=== PATIENT | female | born 1945 | race American Indian/Alaskan Native ===

== ENCOUNTER 2017-06-26 08:49 | Observation (INO) | payer MEDICARE, OTHER ==
[2017-06-26] MEDS ORDERED: BABY ASPIRIN ONE ×2 (09:32→11:26)
[2017-06-26 09:47] LABS: Basophils % (Auto) 0.8 % (0.0-1.8); Eosinophils % (Auto) 1.9 % (0.0-4.3); Hematocrit 39.7 % (30.3-42.9); Mean Corpuscular HGB Conc 33 % (30-34); Mean Corpuscular Hemoglobin 30 pg (28-32); Mean Corpuscular Volume 90 fl (79-97); Red Blood Count 4.41 M/mm3 (3.65-5.03); Red Cell Distribution Width 13.3 % (13.2-15.2); White Blood Count 8.1 K/mm3 (4.5-11.0)
[2017-06-26 09:57] LABS: Anion Gap 18 mmol/L; Blood Urea Nitrogen 17 mg/dL (7-17); Calcium 9.5 mg/dL (8.4-10.2); Carbon Dioxide 26 mmol/L (22-30); Chloride 102.2 mmol/L (98-107); Glucose 111 mg/dL (65-100); Potassium 4.3 mmol/L (3.6-5.0); Sodium 142 mmol/L (137-145)
[2017-06-26] MEDS ORDERED: HEPARIN/NS 5000 UNIT/500ML(CATH LAB) 1,000 ML IR ONE (09:59)
[2017-06-26] MEDS ORDERED: NACL 0.9% 500 ML 500 ML IV SCH (10:00)
[2017-06-26] MEDS: BABY ASPIRIN PO SCH (10:00)
[2017-06-26] MEDS ORDERED: XYLOCAINE 2% INFILTRATI ONE (10:00)
[2017-06-26] MEDS ORDERED: VERSED ONE (10:01)
[2017-06-26] MEDS ORDERED: NITROGLYCERIN SYRINGE 3 ML ONE (10:01)
[2017-06-26] MEDS ORDERED: SUBLIMAZE ONE (10:01)
[2017-06-26 10:04] LABS: Platelet Count 216 K/mm3 (140-440)
[2017-06-26 10:09] LABS: INR 0.88 (0.87-1.13)
[2017-06-26] MEDS: HEPARIN 10,000 UNITS/10 ML ONE ×4 (10:41→11:30)
[2017-06-26] MEDS ORDERED: PLAVIX ONE (11:26)
[2017-06-26] MEDS ORDERED: ALUM-MAG HYDROX-SIMETH 200-200-20MG/5ML ONE (11:37)
[2017-06-26] MEDS ORDERED: NACL 0.9% 1000 ML 1,000 ML IV SCH (12:00)
[2017-06-26] MEDS: COREG PO SCH ×3 (12:00→21:53)
[2017-06-26] MEDS: NORVASC PO SCH ×2 (12:00→12:08)
[2017-06-26] MEDS: IMDUR PO SCH (12:53)
--- NOTE | 2017-06-26 13:41 | Cardiac Catherization Report ---
CARDIAC CATHETERIZATION AND CORONARY ANGIOPLASTY REASON FOR PROCEDURE: The patient is a 71-year-old woman with chest pain and abnormal thallium stress test, referred for cardiac catheterization. PROCEDURE: The patient was prepped and draped in a sterile fashion after informed consent. The right femoral artery was entered using the Seldinger technique followed by placement of a 6-Latvian sheath. Selective left and right coronary angiography was performed using a #4 left J Carlos and a #4 right J Carlos. The right J Carlos catheter was used for left ventricle angiography. FINDINGS: HEMODYNAMICS: Left ventricle end diastolic pressure was 14. Ascending aortic pressure was 170/69. There was no significant pressure gradient on pullback across the aortic valve. CORONARY ANGIOGRAPHY: There was moderate to severe, diffuse coronary calcification involving both left and right coronary arteries. The left main coronary artery contained mild luminal irregularities. The left anterior descending artery contained an 80% to 90% stenosis of its proximal segment, close to its ostium. Following this lesion, there was diffuse moderate atherosclerosis of the rest of the proximal, mid, and distal segments of the LAD and diagonal branches. The circumflex artery also contained an 80% to 90% stenosis of its proximal AV groove segment. Following this, there was diffuse mild atherosclerosis of the circumflex system and its obtuse marginal branches. The right coronary artery was dominant. This vessel contained heavy calcification at its ostium and proximal segment. This was associated with diffuse mild atherosclerosis of the proximal, mid, and distal segments of this vessel. There was well preserved left ventricular systolic function, ejection fraction 55% to 60%. CORONARY ANGIOPLASTY: After review of the angiograms, ad hoc coronary intervention to the proximal LAD and proximal circumflex artery was recommended. We exchanged for an XB 3.5 guiding catheter and advanced to the left coronary ostium. A 0.014 inch Master Control Supervisor 50 guidewire was introduced into the LAD. Following wire placement across the lesion, a 2.75 mm balloon catheter was then used to predilate the proximal LAD stenosis. Following this, we deployed a 3.0 x 12 mm drug-eluting stent, covering the lesional segment and expanded the stent to optimal pressures. Following stenting, there was an excellent angiographic result at the treated site, 0 residual stenosis and ROMAINE 3 flow was maintained down the vessel. The diffuse moderate atherosclerosis of the mid LAD was not treated with intervention, recommended for risk factor modification and medical therapy. Second vessel coronary angioplasty, we then turned our attention to the circumflex stenosis. The Master Control Supervisor 50 guidewire was withdrawn from the LAD and introduced into the circumflex. Following wire placement across the circumflex stenosis, we again predilated the stenosis using the 2.75 mm balloon catheter. Following this, we deployed another, 3.0 x 12 mm drug-eluting stent across the circumflex stenosis, and deflated to optimal pressures. Following stent deployment, there was an excellent angiographic result, 0 residual stenosis and ROMAINE 3 flow down the vessel. The procedure was well tolerated by the patient and there were no complications. The catheters and the wires were removed, sheath removed, and hemostasis achieved using an Angio-Seal device. The patient was returned to the postprocedure unit in stable condition. There were no complications. FINAL CONCLUSION: 1. 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 2. Well preserved left ventricular systolic function, ejection fraction 55% to 60%. 3. Successful ad hoc angioplasty and stenting of the proximal LAD stenosis. 4. Successful second vessel angioplasty and stenting of the proximal circumflex stenosis. Drug-eluting stents were deployed in both proximal LAD and proximal circumflex arteries. The patient will be admitted to the postprocedure unit for post-intervention management. JOB# [id number] ISAURA/DIMITRY
[2017-06-26] MEDS ORDERED: TYLENOL PO PRN (21:16)
[2017-06-26] MEDS ORDERED: MILK OF MAGNESIA PO PRN (21:18)
[2017-06-26] MEDS ORDERED: ZOCOR PO SCH (22:00)
[2017-06-27 06:44] LABS: Basophils % (Auto) 0.3 % (0.0-1.8); Hematocrit 32.2 % (30.3-42.9); Hemoglobin 11.1 gm/dl (10.1-14.3); Mean Corpuscular HGB Conc 35 % (30-34); Mean Corpuscular Hemoglobin 31 pg (28-32); Mean Corpuscular Volume 90 fl (79-97); Platelet Count 202 K/mm3 (140-440); Red Cell Distribution Width 13.1 % (13.2-15.2); White Blood Count 7.5 K/mm3 (4.5-11.0)
[2017-06-27 06:57] LABS: Creatine Kinase MB 2.8 ng/mL (0.0-4.0)
[2017-06-27 06:58] LABS: Anion Gap 21 mmol/L; Blood Urea Nitrogen 18 mg/dL (7-17); Calcium 8.9 mg/dL (8.4-10.2); Carbon Dioxide 23 mmol/L (22-30); Chloride 99.8 mmol/L (98-107); Creatine Kinase 111 units/L (30-135); Glucose 245 mg/dL (65-100); Potassium 3.9 mmol/L (3.6-5.0); Sodium 140 mmol/L (137-145)
--- NOTE | 2017-06-27 08:06 | XRay Report ---
AP CHEST: HISTORY: chest pain, status post cardiac catheterization AP view of the chest demonstrates a normal mediastinal and cardiac contour with clear lungs and normal bony and soft tissue structures. IMPRESSION: Unremarkable AP chest.
[2017-06-27 08:18] VITALS: BP 134/63
--- NOTE | 2017-06-27 08:28 | Admit Criteria Form ---
Admission Criteria Documentation: TELEMETRY CARE Telemetry Admission Guidelines (Place 'X' for any and all applicable criteria): Admission to telemetry [A] may be indicated for ANY ONE of the following(1)(2)(3 )(4)(5): [X ]I. Cardiac disease, including ANY ONE of the following (9)(10)(11)(12)( 13): [ ]a) Postacute WA [ ]b) Low-risk patients with ST-segment elevation WA who have undergone successful percutaneous coronary intervention [ ]c) Unstable angina [ ]d) Suspected WA (until it is ruled out) [ ]e) Post cardiac surgery (first 48 to 72 hours unless complications occur) [ ]f) Acute arrhythmias (including significant tachycardia or bradycardia) [B] [ ]g) Firing of an implantable cardioverter defibrillator [C] [ ]h) Suspected pacemaker or implantable cardioverter defibrillator malfunction (10) [ ]i) New administration or adjustment of an antiarrhythmic drug [D ] [ ]j) Child admitted for acute congestive heart failure [ ]j) Long QT syndrome [ ]k) Advanced heart block (eg, second-degree Mobitz type II, third- degree heart block) [ ]l) Acute myocarditis or pericarditis [X ]m) Short-term (ambulatory or inpatient) monitoring after a cardiac procedure as indicated by ANY ONE of the following [E]: [ ]i) Electrophysiologic studies [X ]ii) Percutaneous coronary intervention with stent placement [ ]iii) Pacemaker placement with cardiac conduction defect [ ]iv) Implantable cardiac defibrillator placement [ ]II. Drug overdose or poisoning with substance that causes arrhythmias or QT prolongation (eg, phenothiazines, sympathomimetic agents, cyclic antidepressants, digitalis, antiarrhythmic drugs)(15) [ ]III. Short-term (ambulatory or inpatient) monitoring after therapeutic or diagnostic procedure requiring conscious sedation or anesthesia (eg, endoscopy, elective cardioversion) [ ]IV. Acute cerebrovascular even[F](18) [ ]V. Massive blood transfusion (eg, at least 10 units of packed red blood cells in 24 hours) [ ]. Variceal bleeding after endoscopy, sclerotherapy, or IV vasopressin [ ]VII. Uncorrected electrolyte abnormalities associated with an increased risk of dangerous arrhythmia [G]; examples include [ ]a) Hyperkalemia with attributable ECG changes [ ]b) Potassium greater than 6.5 mmol/L (mEq/L) in a patient without history of chronic renal disease [ ]c) Prolonged QT attributed to hypokalemia, hypomagnesemia, or hypocalcemia [ ]VIII.Unexplained syncope or other neurologic event suspected of being due to arrhythmia due to a finding that increases risk; examples include(19)(20)(21): [ ]a) High-risk ECG findings (eg, bifascicular block, bradycardia, abnormal QT interval, ventricular pre- excitation) [ ]b) History of previous syncope due to arrhythmia [ ]c) Abnormal ventricular function (eg, reduced ejection fraction ) [ ]d) Exertional or supine syncope [ ]e) Concerning syncope characteristics (eg, sudden loss of consciousness without prodrome) [ ]f) Family history of sudden [ ]g) Use of arrhythmogenic medication [ ]h) Suspected cardiac ischemia [ ]i) Known channelopathy (eg, long QT syndrome, Brugada syndrome, or catecholaminergic paroxysmal ventricular tachycardia) [ ]j) Known structural heart disease (eg, hypertrophic cardiomyopathy , severe valvular disease) [ ]k) Palpitations preceding syncope The original [employer] content created by [employer] has been revised. The portions of the content which have been revised are identified through the use of italic text or in bold, and [employer] has neither reviewed nor approved the modified material. All other unmodified content is copyright [employer]. Please see references footnoted in the original [employer] edition 2016 Admission Criteria Met: Yes
[2017-06-27] MEDS: BABY ASPIRIN PO SCH (09:04)
[2017-06-27] MEDS: IMDUR PO SCH (09:04)
[2017-06-27] MEDS: COREG PO SCH (09:05)
[2017-06-27] MEDS: NORVASC PO SCH (09:05)
[2017-06-27] MEDS ORDERED: PLAVIX PO SCH (10:00)
--- NOTE | 2017-06-27 10:38 | Short Stay Summary ---
Short Stay Documentation Date of service: 06/27/17 - History H&P: obtained from office - Allergies and Medications Current Medications: Allergies No Known Allergies Allergy (Verified 06/26/17 09:10) Home Medications Medication Instructions Recorded Confirmed Last Taken Type Amlodipine Besylate [Amlodipine 5 mg PO DAILY 06/26/17 06/26/17 06/26/17 History Besylate] Carvedilol [Carvedilol] 6.25 mg PO BID 06/26/17 06/26/17 06/26/17 History 6.25 Insulin Aspart [NovoLOG Flexpen] 15 units SUB-Q DAILY 06/26/17 06/26/17 History Insulin Detemir [Levemir Flextouch] 30 units SUB-Q QHS 06/26/17 06/26/17 History Losartan Potassium [Losartan 100 mg PO DAILY 06/26/17 06/26/17 06/26/17 History Potassium] Simvastatin [Simvastatin] 20 mg PO QHS 06/26/17 06/26/17 06/25/17 History Active Medications Acetaminophen (Tylenol) 650 mg PO Q6H PRN PRN Reason: Pain, Mild (1-3) Last Admin: 06/26/17 21:52 Dose: 650 mg Amlodipine Besylate (Norvasc) 5 mg PO DAILY [facility] Last Admin: 06/27/17 09:05 Dose: 5 mg Aspirin (Baby Aspirin) 81 mg PO QDAY [facility] Last Admin: 06/27/17 09:04 Dose: 81 mg Carvedilol (Coreg) 6.25 mg PO BID [facility] Last Admin: 06/27/17 09:05 Dose: 6.25 mg Clopidogrel Bisulfate (Plavix) 75 mg PO QDAY [facility] Last Admin: 06/27/17 09:04 Dose: 75 mg Insulin Human Regular (Novolin R) 0 units SUB-Q [facility] PRN Reason: Protocol Last Admin: 06/27/17 09:03 Dose: 1 units Isosorbide Mononitrate (Imdur) 30 mg PO QDAY [facility] Last Admin: 06/27/17 09:04 Dose: 30 mg Losartan Potassium (Cozaar) 100 mg PO QDAY [facility] Magnesium Hydroxide (Milk Of Magnesia) 30 ml PO QDAY PRN PRN Reason: Constipation Last Admin: 06/26/17 21:55 Dose: 30 ml Simvastatin (Zocor) 20 mg PO QHS [facility] Last Admin: 06/26/17 21:53 Dose: 20 mg - Physical exam General appearance: no acute distress HEENT: PERRLA Lungs: Clear to auscultation Heart: Regular rate, Normal S1, Normal S2 - Brief post op/procedure progress note Procedure: s/p angioplasty and stenting of the proximal LAD and proximal circumflex artery using drug eluting stents. Condition: stable - Hospital course Hospital course: Stable overnight observation. - Disposition Condition at discharge: Good Disposition: [id number] TO HOME OR SELFCARE Short Stay Discharge Plan Activity: other (No driving for 48hrs.) Diet: low fat, low cholesterol, low salt, diabetic Special Instructions: other (Post cardiac cath instructions.) Additional Instructions: Follow up with [facility] as scheduled at 220p. Follow up with: ADAMARIS REYNA MD [Primary Care Provider] - 7 Days DAVINA FOSTER MD [Staff Physician] - 7 Days Forms: CardCat PCI D/C Instructions Prescriptions: Aspirin [Aspirin BABY CHEW TAB] 81 mg PO QDAY #30 tab.chew Clopidogrel [Plavix] 75 mg PO QDAY #30 tablet ISOSORBIDE MONOnitrate [Imdur ER] 30 mg PO QDAY #30 tablet
[2017-06-27] MEDS ORDERED: COZAAR PO SCH (11:45)
== END 2017-06-27 14:30 | disposition home or self-care (01) ==
LOC: CATHLABREC 08:49 → 4A 11:37
PROVIDERS: ADMIT Internal Medicine Cardiovascular Disease; ATTEND Internal Medicine Cardiovascular Disease
DX: I20.9 Angina pectoris, unspecified (principal); I10 Essential (primary) hypertension; E78.5 Hyperlipidemia, unspecified; E10.9 Type 1 diabetes mellitus without complications; R63.5 Abnormal weight gain; Z90.710 Acquired absence of both cervix and uterus; Z96.649 Presence of unspecified artificial hip joint; Z98.61 Coronary angioplasty status
CPT/HCPCS: 36415; 71010; 80048; 82550; 82553; 82962; 84484; 85025; 85347; 85610; 85730; 93005; 93010; 93306; 93458; 96372; C1725; C1760; C1769; C1874; C1887; C1894; C9600; C9601; G0378; J1644; J2250; J3010; J7040; 92928; 92929; J1815; Q9967

== ENCOUNTER 2020-12-20 15:07 | Outpatient (CLI) | payer MEDICARE, OTHER ==
--- NOTE | 2020-12-20 16:05 | Mammography Report ---
DIGITAL DIAGNOSTIC MAMMOGRAM WITH CAD CONVENTIONAL, 12/20/2020 CLINICAL INFORMATION / INDICATION: Patient presents for evaluation of an area of focal pain in the ri ght breast. TECHNIQUE: Digital right mammographic imaging was performed. This examination was interpreted with the benefit of Computer-aided Detection analysis. COMPARISON: Prior mammograms 04/21/2020 and 04/18/2019 FINDINGS: Breast Density: The breasts are almost entirely fatty. No dominant mass, suspicious calcifications or architectural distortion in the right breast. There are a few stable benign-appearing calcifications seen in the right breast. There has been no si gnificant change compared with the prior examination. There is no mammographic abnormality to account for the area of focal pain in the right breast. IMPRESSION: 1. No mammographic abnormality to account for the area of focal pain in the right breast, therefore c linical correlation is recommended. If there is ongoing clinical concern, a targeted right breast ult rasound could be performed. Follow up recommendation: Back to schedule. BI-RADS Category 2: Benign. A "normal" or negative report should not discourage follow up or biopsy of a clinically significant f inding. A written summary of these findings will be mailed to the patient. The patient will be entered into a mammography reporting system which will generate a reminder letter for the patient's next appointmen t at the appropriate interval. According to the [employer], yearly mammograms are recommended starting at age 40 and continuing as long as a woman is in good health. Breast MRI is recommended for women with an edd roximately 20-25% or greater lifetime risk of breast cancer, including women with a strong family his tory of breast or ovarian cancer and women who have been treated for Hodgkin's disease. Signer Name: Kasey Costa MD Signed: 12/20/2020 4:00 PM Workstation Name: [id number]
== END 2020-12-20 15:08 | disposition home or self-care (01) ==
LOC: SPVWC 15:07
PROVIDERS: ATTEND Surgery
DX: R92.1 Mammographic calcification found on diagnostic imaging of breast (principal)